=== PATIENT | male | born 1970 | race Caucasian/White ===

== ENCOUNTER → 2022-01-07 | Outpatient (CLI) | payer OTHER | LOC: KOH-I 12-31 13:45 | DX: M25.562 Pain in left knee (principal); M23.52 Chronic instability of knee, left knee; M23.92 Unspecified internal derangement of left knee; Z98.890 Other specified postprocedural states; R93.6 Abnormal findings on diagnostic imaging of limbs; S83.242A Other tear of medial meniscus, current injury, left knee, initial encounter; M25.762 Osteophyte, left knee | CPT/HCPCS: 73721 ==